=== PATIENT | female | born 1965 | race Caucasian/White ===

== ENCOUNTER 2020-02-01 16:13 | Emergency (ER) | payer BC ==
--- NOTE | 2020-02-01 16:16 | ERPHSYRPT ---
- History of Present Illness Time Seen by Provider: 02/01/20 16:16 Source: patient Exam Limitations: no limitations Physician History: This is a 54-year-old morbidly obese white female who has had a history of frequent urinary tract infections and presents with initial pain in the right scapular area with radiation and now localization in the right flank area. This occurred over approximately 1 to 2-day period of time. She denies any traumatic injury. The pain is significant and localized in the right flank region. Patient has noticed her urine being discolored, that is pink. She has no dysuria. She denies abdominal pain. She has no chest pain she has no shortness of breath. She has no new cough. She chronically has a mild cough. She is had no fevers. Timing/Duration: day(s) (1-2) Activites at Onset: none Quality: sharpness, stabbing Onset Location: right flank Severity of Pain-Max: mild Severity of Pain-Current: mild Sexual intercourse history: non-contributory Modifying Factors: Improves With: nothing Associated Symptoms: No abdominal pain, No fever, No chills, No nausea, No vomiting, No dysuria, No urinary frequency Allergies/Adverse Reactions: No Known Drug Allergies Allergy (Unverified 02/01/20 16:40) Home Medications: Amlodipine Besylate 5 mg PO DAILY 02/01/20 [History] Atorvastatin Calcium 20 mg PO DAILY 02/01/20 [History] Insulin Aspart [Novolog] 13 units SQ AC 02/01/20 [History] Insulin Glargine [Lantus Insulin] 35 units SQ HS 02/01/20 [History] Lisinopril/Hydrochlorothiazide [Lisinopril-Hctz 20-25 mg Tab] 20 mg PO DAILY 02/01/20 [History] gemfibroziL [Gemfibrozil] 600 mg PO DAILY 02/01/20 [History] - Review of Systems Constitutional: No Symptoms Eyes: No Symptoms Ears, Nose, & Throat: No Symptoms Respiratory: Cough (Chronic mild cough) Cardiac: No Symptoms Abdominal/Gastrointestinal: No Symptoms Genitourinary Symptoms: Flank Pain (Right side) Musculoskeletal: No Symptoms Skin: No Symptoms Neurological: No Symptoms Psychological: No Symptoms Endocrine: No Symptoms Hematologic/Lymphatic: No Symptoms Immunological/Allergic: No Symptoms All Other Systems: Reviewed and Negative - Past Medical History Pertinent Past Medical History: Yes Neurological History: No Pertinent History ENT History: No Pertinent History Cardiac History: No Pertinent History Respiratory History: No Pertinent History Endocrine Medical History: Diabetes Type I Musculoskeletal History: Arthritis GI Medical History: No Pertinent History History: No Pertinent History Psycho-Social History: No Pertinent History Female Reproductive Disorders: No Pertinent History - Past Surgical History Past Surgical History: No Neuro Surgical History: No Pertinent History Cardiac: No Pertinent History Respiratory: No Pertinent History Gastrointestinal: No Pertinent History Genitourinary: No Pertinent History Musculoskeletal: No Pertinent History Female Surgical History: No Pertinent History - Nursing Vital Signs Nursing Vital Signs: Initial Vital Signs Temperature 98.9 F 02/01/20 16:24 Pulse Rate 107 H 02/01/20 16:24 Respiratory Rate 22 02/01/20 16:24 Blood Pressure 104/62 02/01/20 16:24 O2 Sat by Pulse Oximetry 96 02/01/20 16:24 Pain Scale Pain Intensity 2 - Physical Exam General Appearance: no apparent distress, alert, anxiety, obese Eye Exam: PERRL/EOMI, eyes nml inspection Ears, Nose, Throat Exam: normal ENT inspection, moist mucous membranes Neck Exam: normal inspection, non-tender, supple, full range of motion Respiratory Exam: normal breath sounds, lungs clear, airway intact, No chest tenderness, No respiratory distress Cardiovascular Exam: regular rate/rhythm, normal heart sounds, normal peripheral pulses Gastrointestinal/Abdomen Exam: soft, normal bowel sounds, No tenderness, No guarding Pelvic Exam: not done Rectal Exam: not done Back Exam: normal inspection, normal range of motion, CVA tenderness (Right), No vertebral tenderness Extremity Exam: normal inspection, normal range of motion, pelvis stable Neurologic Exam: alert, oriented x 3, 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, 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 Skin Exam: normal color, warm, dry Lymphatic Exam: No adenopathy SpO2 Interpretation: normal O2 Delivery: Room Air - Course Nursing assessment & vital signs reviewed: Yes Ordered Tests: Active Orders 24 hr Category Date Time Status IV Insertion STAT Care 02/01/20 16:44 Active ABDOMEN AND PELVIS W/0 CONTRAS [CT] Stat Exams 02/01/20 16:44 Taken AMYLASE Stat Lab 02/01/20 17:00 Completed CBC W DIFF Stat Lab 02/01/20 16:30 Completed CMP Stat Lab 02/01/20 17:00 Completed CULTURE,URINE Stat Lab 02/01/20 16:45 Received LIPASE Stat Lab 02/01/20 17:00 Completed Lactic Acid Stat Lab 02/01/20 16:44 Completed Manual Differential NC Stat Lab 02/01/20 16:30 Completed UA W/RFX UR CULTURE Stat Lab 02/01/20 16:45 Completed Medication Summary Generic Name Dose Route Start Last Admin Trade Name Freq PRN Reason Stop Dose Admin Hydrocodone Bitart/Acetaminophen 10 ml 02/01/20 18:20 Hydrocodone-Acetamin 2.5-108/5 Ml Solution PO 02/01/20 18:21 STAT STA Ceftriaxone Sodium/Dextrose 1 g in 50 mls @ 100 mls/hr 02/01/20 18:04 02/01/20 18:11 Rocephin 1 Gm-D5w 50 Ml Bag IV 02/01/20 18:33 100 mls/hr STAT STA 100 mls/hr Administration Discontinued Medications Generic Name Dose Route Start Last Admin Trade Name Freq PRN Reason Stop Dose Admin Sodium Chloride 1,000 mls @ 999 mls/hr 02/01/20 16:44 02/01/20 17:39 Sodium Chloride 0.9% 1000 Ml IV 02/01/20 17:44 999 mls/hr .Q1H1M STA Administration Sodium Chloride Confirm 02/01/20 17:30 Sodium Chloride 0.9% 1000 Ml Administered 02/01/20 17:31 Dose 1,000 mls @ ud .ROUTE .STK-MED ONE Ceftriaxone Sodium/Dextrose Confirm 02/01/20 18:10 Rocephin 1 Gm-D5w 50 Ml Bag Administered 02/01/20 18:11 Dose 1 g in 50 mls @ ud IV .STK-MED ONE Ketorolac Tromethamine 30 mg 02/01/20 16:44 Toradol 30 Mg Injection IV 02/01/20 16:45 STAT ONE Ketorolac Tromethamine Confirm 02/01/20 17:30 Toradol 30 Mg Injection Administered 02/01/20 17:31 Dose 30 mg .ROUTE .STK-MED ONE Levofloxacin 500 mg 02/01/20 18:07 02/01/20 18:11 Levofloxacin 500 Mg Tablet PO 02/01/20 18:08 500 mg STAT ONE Administration Levofloxacin Confirm 02/01/20 18:10 Levofloxacin 500 Mg Tablet Administered 02/01/20 18:11 Dose 500 mg .ROUTE .STK-MED ONE Ondansetron HCl 4 mg 02/01/20 16:44 Zofran 4 Mg/2 Ml Vial IV 02/01/20 16:45 STAT ONE Ondansetron HCl Confirm 02/01/20 17:29 Zofran 4 Mg/2 Ml Vial Administered 02/01/20 17:30 Dose 4 mg .ROUTE .STK-MED ONE Lab/Rad Data: Laboratory Result Diagrams 02/01/20 16:30 02/01/20 17:00 Laboratory Results 02/01/20 02/01/20 02/01/20 Range/Units 17:00 16:45 16:44 WBC (4.0-10.5) K/mm3 RBC (4.1-5.4) M/mm3 Hgb (12.0-16.0) gm/dl Hct (35-47) % MCV (78-100) fl MCH (26-32) pg MCHC (32-36) g/dl RDW (11.5-14.0) % Plt Count (150-450) K/mm3 MPV (7.5-11.0) fl Segmented Neutrophils (36.0-66.0) % Lymphocytes (Manual) (24-44) % Monocytes (Manual) (0.0-12.0) % Eosinophils (Manual) (0.00-3.0) % Platelet Estimate (NORMAL) RBC Morphology Sodium 133 L (137-145) mmol/L Potassium 3.5 (3.5-5.1) mmol/L Chloride 97 L (98-107) mmol/L Carbon Dioxide 27 (22-30) mmol/L Anion Gap 12.3 (5-15) MEQ/L BUN 14 (7-17) mg/dL Creatinine 1.02 (0.52-1.04) mg/dL Estimated GFR 59.6 ML/MIN Glucose 407 H (74-106) mg/dL Lactic Acid 2.6 H (0.4-2.0) Calcium 9.8 (8.4-10.2) mg/dL Total Bilirubin 1.10 (0.2-1.3) mg/dL AST 38 H (14-36) U/L ALT 24 (0-35) U/L Alkaline Phosphatase 140 H (38-126) U/L Serum Total Protein 7.4 (6.3-8.2) g/dL Albumin 4.1 (3.5-5.0) g/dL Amylase 39 (30-110) U/L Lipase 90 (23-300) U/L Urine Color YELLOW (YELLOW) Urine Appearance CLOUDY (CLEAR) Urine pH 6.0 (5-6) Ur Specific Derwent 1.021 (1.005-1.025) Urine Protein 100 (Negative) Urine Ketones TRACE (NEGATIVE) Urine Blood LARGE (0-5) Rodriguez/ul Urine Nitrite POSITIVE (NEGATIVE) Urine Bilirubin NEGATIVE (NEGATIVE) Urine Urobilinogen NEGATIVE (0-1) mg/dL Ur Leukocyte Esterase LARGE (NEGATIVE) Urine WBC (Auto) >100 (0-5) /HPF Urine RBC (Auto) >101 (0-2) /HPF U Epithel Cells (Auto) RARE (FEW) /HPF Urine Bacteria (Auto) MANY (NEGATIVE) /HPF Amorphous Crystals FEW (NEGATIVE) /HPF Urine Culture Reflexed YES (NO) Urine Glucose >=500 (NEGATIVE) mg/dL 02/01/20 Range/Units 16:30 WBC 20.3 H (4.0-10.5) K/mm3 RBC 4.28 (4.1-5.4) M/mm3 Hgb 13.1 (12.0-16.0) gm/dl Hct 40.8 (35-47) % MCV 95.3 (78-100) fl MCH 30.6 (26-32) pg MCHC 32.1 (32-36) g/dl RDW 14.3 H (11.5-14.0) % Plt Count 297 (150-450) K/mm3 MPV 10.0 (7.5-11.0) fl Segmented Neutrophils 87 H (36.0-66.0) % Lymphocytes (Manual) 7 L (24-44) % Monocytes (Manual) 5 (0.0-12.0) % Eosinophils (Manual) 1 (0.00-3.0) % Platelet Estimate NORMAL (NORMAL) RBC Morphology NORMAL Sodium (137-145) mmol/L Potassium (3.5-5.1) mmol/L Chloride (98-107) mmol/L Carbon Dioxide (22-30) mmol/L Anion Gap (5-15) MEQ/L BUN (7-17) mg/dL Creatinine (0.52-1.04) mg/dL Estimated GFR ML/MIN Glucose (74-106) mg/dL Lactic Acid (0.4-2.0) Calcium (8.4-10.2) mg/dL Total Bilirubin (0.2-1.3) mg/dL AST (14-36) U/L ALT (0-35) U/L Alkaline Phosphatase (38-126) U/L Serum Total Protein (6.3-8.2) g/dL Albumin (3.5-5.0) g/dL Amylase (30-110) U/L Lipase (23-300) U/L Urine Color (YELLOW) Urine Appearance (CLEAR) Urine pH (5-6) Ur Specific Derwent (1.005-1.025) Urine Protein (Negative) Urine Ketones (NEGATIVE) Urine Blood (0-5) Rodriguez/ul Urine Nitrite (NEGATIVE) Urine Bilirubin (NEGATIVE) Urine Urobilinogen (0-1) mg/dL Ur Leukocyte Esterase (NEGATIVE) Urine WBC (Auto) (0-5) /HPF Urine RBC (Auto) (0-2) /HPF U Epithel Cells (Auto) (FEW) /HPF Urine Bacteria (Auto) (NEGATIVE) /HPF Amorphous Crystals (NEGATIVE) /HPF Urine Culture Reflexed (NO) Urine Glucose (NEGATIVE) mg/dL - Progress Progress: improved, re-examined Air Movement: good Progress Note: 02/01/20 18:22 CAT scan of the abdomen and pelvis does not show any acute intra-abdominal a bnormality. However, there is evidence of infiltrate and consolidation of the right base of the lung. Medical decision making: This patient appears to have a right lower lobe pneumonia. In addition, she has a urinary tract infection/kidney infection. We will provide her with Rocephin intravenously and an oral Levaquin antibiotic in the emergency department. Patient has her own regimen for cough control and she will continue this at home per her choice. However, she does want a dose of Lortab elixir here in the emergency department. We will send her home with a prescription for Levaquin antibiotics for 7 days. She is to follow-up with her primary care physician for further management. Blood Culture(s) Obtained: No Antibiotics given: Yes Counseled pt/family regarding: lab results, diagnosis, need for follow-up, rad results - Departure Departure Disposition: Home Clinical Impression: Infiltrate of lower lobe of right lung present on imaging study, Urinary tract infection Condition: Stable Critical Care Time: No Referrals: NISHA PARISI [Primary Care Provider] - Additional Instructions: Drink plenty of fluids. Take your medication as prescribed. Follow-up with your primary care physician for further management. Prescriptions: Levofloxacin [Levaquin 500 MG Tablet] 500 mg PO DAILY #7 tablet
[2020-02-01] MEDS ORDERED: Zofran 4 MG/2 ML VIAL IV ONE (16:44)
[2020-02-01] MEDS ORDERED: Sodium Chloride 0.9% 1000 ML 1,000 ML IV STA (16:44)
[2020-02-01 17:07] LABS: Hematocrit 40.8 % (35-47); Hemoglobin 13.1 gm/dl (12.0-16.0); Mean Cell Volume 95.3 fl (78-100); Mean Corpuscular Hemoglobin 30.6 pg (26-32); Mean Corpuscular Hgb Concent. 32.1 g/dl (32-36); Platelet Count 297 K/mm3 (150-450); Red Blood Count 4.28 M/mm3 (4.1-5.4); Red Cell Distribution Width 14.3 % (11.5-14.0); White Blood Count 20.3 K/mm3 (4.0-10.5)
[2020-02-01 17:16] LABS: ALBUMIN 4.1 g/dL (3.5-5.0); ANION GAP 12.3 MEQ/L (5-15); BILIRUBIN,TOTAL 1.1 mg/dL (0.2-1.3); Calcium 9.8 mg/dL (8.4-10.2); Creatinine 1 1.02 mg/dL (0.52-1.04); EST GLOMERULAR FILTRATION RATE 59.6 ML/MIN; Potassium 3.5 mmol/L (3.5-5.1); Total Protein 7.4 g/dL (6.3-8.2)
[2020-02-01 17:25] LABS: Amourphous Crystal FEW /HPF (NEGATIVE); Appearance CLOUDY (CLEAR); Bacteria MANY /HPF (NEGATIVE); Bilirubin NEGATIVE (NEGATIVE); Blood LARGE Ery/ul (0-5); Epithelial Cells RARE /HPF (FEW); Glucose >=500 mg/dL (NEGATIVE); Ketones TRACE (NEGATIVE); Leukocyte Esterase LARGE (NEGATIVE); Nitrite POSITIVE (NEGATIVE); Protein,Urine Dip 100 (Negative); Specific Gravity 1.021 (1.005-1.025); Urobilinogen NEGATIVE mg/dL (0-1); WBC >100 /HPF (0-5)
[2020-02-01] MEDS ORDERED: Zofran 4 MG/2 ML VIAL ONE (17:29)
[2020-02-01] MEDS ORDERED: Sodium Chloride 0.9% 1000 ML 1,000 ML ONE (17:30)
[2020-02-01] MEDS ORDERED: TORAdol 30 mg Injection ONE (17:30)
[2020-02-01 17:32] VITALS: BP 134/69; O2SAT 95
[2020-02-01 17:34] LABS: RBC >101 /HPF (0-2)
[2020-02-01] MEDS: TORAdol 30 mg Injection IV ONE ×2 (17:39→18:38)
[2020-02-01] MEDS ORDERED: ROCEPHIN 1 Gm-D5w 50 ml Bag** 1 G/50 ML IVPB IV STA (18:04)
[2020-02-01 18:05] LABS: Eosinophil 1 % (0.00-3.0); Lymphocytes 7 % (24-44); Monocyte 5 % (0.0-12.0); Neutrophils 87 % (36.0-66.0); Total Cells Counted 100
[2020-02-01 18:06] LABS: Platelet Estimate NORMAL (NORMAL)
[2020-02-01] MEDS ORDERED: Levofloxacin 500 MG Tablet PO ONE (18:07)
[2020-02-01 18:08] VITALS: PULSE 101
[2020-02-01] MEDS ORDERED: ROCEPHIN 1 Gm-D5w 50 ml Bag** 1 G/50 ML IVPB IV ONE (18:10)
[2020-02-01] MEDS ORDERED: Levofloxacin 500 MG Tablet ONE (18:10)
[2020-02-01] MEDS ORDERED: HYDROCODONE-ACETAMIN 2.5-108/5 ML SOLUTION PO STA (18:20)
[2020-02-01] MEDS ORDERED: HYDROCODONE-ACETAMIN 2.5-108/5 ML SOLUTION ONE (18:42)
--- NOTE | 2020-02-02 08:43 | XRAY ---
Exam: CT of the abdomen and pelvis without IV contrast from 02/01/2020. CTDI: 31.54 mGy Comparison: None. Indication: 54-year-old female with right-sided flank pain, hematuria, history of prior cholecystectomy. Technique: Non-IV contrast axial images were obtained through the abdomen and pelvis. Reconstructed coronal and sagittal images were created and reviewed. Findings: There is a focal consolidation containing minimal air bronchograms at the medial aspect of the right posterior costophrenic angle. This could represent focal right lower lobe pneumonia. Focal atelectasis would be another possibility, but only after exclusion of pneumonia. The remainder of the visualized lung bases appears unremarkable. The heart size is normal. There is prominent inferior extension of the right lobe of the liver which may represent either a Antonette's lobe or mild hepatomegaly. The right lobe measures 20.7 cm in craniocaudal dimension on the coronal images. There is also suggestion of slight diffuse fatty infiltration of the liver. No focal hepatic mass or intrahepatic biliary duct distention is seen, although assessment is limited on a non-IV contrast study only. The spleen is of normal size and reveals no mass. Surgical clips consistent with prior cholecystectomy are seen within the right upper quadrant. The pancreas and adrenal glands appear unremarkable. Within the right kidney, there are multiple nonobstructing stones, the largest measuring up to 2.1 cm in diameter within the upper pole. The left kidney reveals a couple smaller stones adjacent to each other within the lower pole, the largest measuring 4.5 mm in diameter. I see no evidence of hydronephrosis. The ureters are not abnormally distended. No ureterolith is seen. The abdominal aorta appears of normal diameter revealing no abdominal aortic aneurysm. No abnormal retroperitoneal lymphadenopathy is seen. There are a few shotty lymph nodes seen between the distal abdominal aorta and IVC and to the left of the distal abdominal aorta. There is no free intraperitoneal air. There are changes suggestive of prior surgical repair of an umbilical hernia with a small mesh. No recurrent ventral hernia is seen. The patient is obese. The bowel appears nonobstructed. Sigmoid colon diverticulosis without evidence of diverticulitis is seen. Scattered stool is seen throughout the colon. I see no findings of appendicitis within the right lower quadrant. The uterus is anteflexed and appears of normal size. Both ovaries appear grossly unremarkable. No enlarged pelvic lymph nodes or free intraperitoneal fluid is seen. The urinary bladder is mildly distended. There is some artifactual streaking within the lower pelvis due to prior right hip replacement. No definite stone is seen within the urinary bladder. Scattered calcified phleboliths are seen within the pelvis. The skeleton reveals no acute fracture or aggressive bone lesion. At least moderate osteoarthritic changes are seen throughout the lower thoracolumbar spine. There is slight anterolisthesis of L4 over L5 without spondylolysis. Advanced degenerative disc disease is seen at L5-S1. I note also note prominent facet joint osteoarthritis involving the lower 4 lumbar interspace levels. Impression: 1. Focal consolidation containing some minimal air bronchograms at the medial aspect of the right posterior lung sulcus within the right lower lobe. This is worrisome for right lower lobe pneumonia. Some concomitant atelectasis cannot be excluded. No associated pleural effusion is seen. 2. I see multiple bilateral renal stones, more numerous and larger within the right kidney than the left kidney. However, no ureteral distention, ureterolith, hydronephrosis, or other evidence of acute obstructive uropathy is seen. No gross urinary bladder stone is seen. 3. Mild hepatomegaly versus Antonette's lobe of the right lobe of the liver. There is also a suggestion of some minimal diffuse fatty infiltration of the liver. 4. Obesity, sigmoid colon diverticulosis without evidence of diverticulitis, evidence of prior cholecystectomy, and probable prior umbilical hernia surgical repair are seen. 5. No other acute process is seen within the abdomen or pelvis. 6. Status post right hip replacement. This causes some artifactual streaking within the lower pelvis.
== END 2020-02-01 19:16 | disposition home or self-care (01) ==
LOC: ED 16:13
DX: R91.8 Other nonspecific abnormal finding of lung field (principal); N39.0 Urinary tract infection, site not specified; R05 Cough; R10.9 Unspecified abdominal pain; E10.9 Type 1 diabetes mellitus without complications; Z79.899 Other long term (current) drug therapy
CPT/HCPCS: 36000; 36415; 74176; 80053; 81001; 82150; 83605; 83690; 85025; 87077; 87086; 87186; 96360; 96365; 99284; J0696; J1885; J2405; A9270-GY

== ENCOUNTER 2020-10-18 14:02 | Observation (INO) | payer BC, OTHER ==
[2020-10-18] MEDS ORDERED: MORPHINE SULFATE 4 MG INJ IV ONE (14:38)
[2020-10-18] MEDS ORDERED: Sodium Chloride 0.9% 1000 ML 1,000 ML IV STA (14:38)
[2020-10-18] MEDS ORDERED: Zofran 4 MG/2 ML VIAL IV ONE (14:38)
[2020-10-18] MEDS ORDERED: Zofran 4 MG/2 ML VIAL ONE (14:40)
[2020-10-18] MEDS ORDERED: Sodium Chloride 0.9% 1000 ML 1,000 ML ONE (14:41)
[2020-10-18] MEDS ORDERED: MORPHINE SULFATE 4 MG INJ ONE (14:41)
[2020-10-18 14:59] LABS: Absolute Neutrophil Ct (ANC) 10.83 (1.4-6.9); BASOPHIL % 0.5 % (0.0-0.4); Basophil (Absolute #) 0.06 (0-0.4); Eosinophil % 0.2 % (0.00-5.0); Eosinophil (Absolute #) 0.02 (0-0.5); Hematocrit 43.8 % (35-47); Lymphocytes % 9.2 % (24.0-44.0); Mean Cell Volume 92.4 fl (78-100); Mean Corpuscular Hemoglobin 29.5 pg (26-32); Monocyte (Absolute #) 0.93 (0.0-1.3); Monocytes % 7.1 % (0.0-12.0); Platelet Count 317 K/mm3 (150-450); Red Blood Count 4.74 M/mm3 (4.1-5.4); Red Cell Distribution Width 13.7 % (11.5-14.0)
[2020-10-18 15:11] LABS: ALBUMIN 4.5 g/dL (3.5-5.0); ANION GAP 12.5 MEQ/L (5-15); BILIRUBIN,TOTAL 0.8 mg/dL (0.2-1.3); Creatinine 1 1.18 mg/dL (0.52-1.04); EST GLOMERULAR FILTRATION RATE 50.4 ML/MIN; Potassium 3.4 mmol/L (3.5-5.1); Total Protein 7.5 g/dL (6.3-8.2)
--- NOTE | 2020-10-18 15:26 | ERPHSYRPT ---
- History of Present Illness Time Seen by Provider: 10/18/20 14:06 Historian: patient Exam Limitations: no limitations Patient Subjective Stated Complaint: lower abd pain, L flank pain. hx kidney stones Triage Nursing Assessment: pt to ED c/o lower abd pain and L sided flank pain that started around 0600 this morning. pt has had hx of kidney stones since fall of last year. rates 6/10 pain currently but states that it fluxuates. also c/o NV after eating this am. has been seeing CIRCUIT MANAGER at Dr Montero office. Physician History: 54 years old morbidly obese female presented in the ER with chief complaint of left flank pain sudden onset this morning, moderate intensity, sharp in nature, nonradiating, aggravated with movements palpation and partial relief with being still. Denies any associated difficulty urination. Patient report associated nausea and couple of episodes of nonprojectile, nonbilious vomiting with no he matemesis. Denies any fever or chills. Does have history of kidney stones. Timing/Duration: today, constant, sudden, worse Activities at Onset: rest Quality: sharpness Abdominal Pain Onset Location: flank Pain Radiation: no radiation Severity of Pain-Max: moderate Severity of Pain-Current: moderate Modifying Factors: Improves With: rest. Worsens With: movement, palpation Associated Symptoms: nausea, vomiting Previous symptoms: no prior history Allergies/Adverse Reactions: No Known Drug Allergies Allergy (Verified 10/18/20 14:26) Home Medications: Amlodipine Besylate 5 mg PO DAILY 02/01/20 [History] Atorvastatin Calcium 20 mg PO DAILY 02/01/20 [History] Insulin Aspart [Novolog] 20 units SQ AC 02/01/20 [History] Insulin Glargine [Lantus Insulin] 25 units SQ BID 02/01/20 [History] Lisinopril/Hydrochlorothiazide [Lisinopril-Hctz 20-25 mg Tab] 20 mg PO DAILY 02/01/20 [History] gemfibroziL [Gemfibrozil] 600 mg PO BID 02/01/20 [History] Celecoxib 100 mg [celeBREX 100 MG] 100 mg PO BID 10/18/20 [History] Cranberry Fruit Extract [Theracran] 650 mg PO DAILY 10/18/20 [History] Levothyroxine Sodium [Levothyroxine] 50 mcg PO DAILY 10/18/20 [History] Nitrofurantoin Monohyd/M-Cryst [Macrobid 100 mg Capsule] 100 mg PO HS 10/18/20 [History] Hx Tetanus, Diphtheria Vaccination/Date Given: No Hx Influenza Vaccination/Date Given: No Hx Pneumococcal Vaccination/Date Given: No Travel Risk - International Travel Have you traveled outside of the country in past 3 weeks: No - Coronavirus Screening Are you exhibiting any of the following symptoms?: Yes Symptoms: Vomiting/Diarrhea Close contact with a COVID-19 positive Pt in past 14-21 Days: No - Vaccine Status Have you recieved a Covid-19 vaccination: No - Review of Systems Constitutional: No Symptoms Eyes: No Symptoms Ears, Nose, & Throat: No Symptoms Respiratory: No Symptoms Cardiac: No Symptoms Abdominal/Gastrointestinal: Abdominal Pain, Nausea, Vomiting Genitourinary Symptoms: No Symptoms Musculoskeletal: No Symptoms Skin: No Symptoms Neurological: No Symptoms Psychological: No Symptoms Endocrine: No Symptoms Hematologic/Lymphatic: No Symptoms Immunological/Allergic: No Symptoms - Past Medical History Pertinent Past Medical History: Yes Neurological History: No Pertinent History ENT History: No Pertinent History Cardiac History: No Pertinent History Respiratory History: No Pertinent History Endocrine Medical History: Diabetes Type I Musculoskeletal History: Arthritis GI Medical History: No Pertinent History History: No Pertinent History Psycho-Social History: No Pertinent History Female Reproductive Disorders: No Pertinent History - Past Surgical History Past Surgical History: Yes Neuro Surgical History: No Pertinent History Cardiac: No Pertinent History Respiratory: No Pertinent History Gastrointestinal: No Pertinent History Genitourinary: No Pertinent History Musculoskeletal: Joint Replacement Female Surgical History: No Pertinent History Other Surgical History: R hip replaced 2012 - Social History Smoking Status: Never smoker Exposure to second hand smoke: No Drug Use: none Patient Lives Alone: No - Female History Hx Now: No - Nursing Vital Signs Nursing Vital Signs: Initial Vital Signs Temperature 99.1 F 10/18/20 14:14 Pulse Rate 75 10/18/20 14:14 Respiratory Rate 20 10/18/20 14:14 Blood Pressure 123/67 10/18/20 14:14 O2 Sat by Pulse Oximetry 95 10/18/20 14:14 Pain Scale Pain Intensity 6 - Physical Exam General Appearance: no apparent distress, alert Eye Exam: eyes nml inspection Ears, Nose, Throat Exam: normal ENT inspection, pharynx normal Neck Exam: normal inspection, non-tender, supple, full range of motion Respiratory Exam: normal breath sounds, lungs clear Cardiovascular Exam: regular rate/rhythm, normal heart sounds Gastrointestinal/Abdomen Exam: soft, normal bowel sounds, tenderness (Left flank), guarding Back Exam: normal inspection, CVA tenderness Extremity Exam: normal inspection, normal range of motion Neurologic Exam: alert, oriented x 3, cooperative, medical oncologist II-XII nml as tested Skin Exam: normal color SpO2 Interpretation: normal SpO2: 96 O2 Delivery: Room Air Ordered Tests: Active Orders 24 hr Category Date Time Status IV Insertion STAT Care 10/18/20 14:38 Active NPO (ED) STAT Care 10/18/20 14:38 Active ABDOMEN AND PELVIS W/0 CONTRAS [CT] Stat Exams 10/18/20 14:38 Taken AMYLASE Stat Lab 10/18/20 14:27 Completed CBC W DIFF Stat Lab 10/18/20 14:27 Completed CMP Stat Lab 10/18/20 14:27 Completed CULTURE,URINE Stat Lab 10/18/20 14:40 Received LIPASE Stat Lab 10/18/20 14:27 Completed Lactic Acid Stat Lab 10/18/20 14:38 Completed UA W/RFX UR CULTURE Stat Lab 10/18/20 14:40 Completed Transfer Order Routine Transfer 10/18/20 Ordered Medication Summary Generic Name Dose Route Start Last Admin Trade Name Freq PRN Reason Stop Dose Admin Ceftriaxone Sodium/Dextrose 1 g in 50 mls @ 100 mls/hr 10/18/20 17:05 17:16 Rocephin 1 Gm-D5w 50 Ml Bag IV 10/18/20 17:34 100 ml/hr STAT STA 100 mls/hr Administration Tamsulosin HCl 0.8 mg 10/19/20 16:14 10/18/20 16:16 Flomax 0.4 Mg PO 10/19/20 16:15 0.8 mg STAT ONE Administration Discontinued Medications Generic Name Dose Route Start Last Admin Trade Name Freq PRN Reason Stop Dose Admin Sodium Chloride 1,000 mls @ 999 mls/hr 10/18/20 14:38 10/18/20 15:44 Sodium Chloride 0.9% 1000 Ml IV 10/18/20 15:38 Infused .Q1H1M STA Infusion Sodium Chloride Confirm 10/18/20 14:41 Sodium Chloride 0.9% 1000 Ml Administered 10/18/20 14:42 Dose 1,000 mls @ ud .ROUTE .STK-MED ONE Ceftriaxone Sodium/Dextrose Confirm 10/18/20 17:13 Rocephin 1 Gm-D5w 50 Ml Bag Administered 10/18/20 17:14 Dose 1 g in 50 mls @ ud IV .STK-MED ONE Ketorolac Tromethamine 30 mg 10/18/20 15:39 10/18/20 15:44 Toradol 30 Mg Injection IV 10/18/20 15:40 30 mg STAT ONE Administration Ketorolac Tromethamine Confirm 10/18/20 15:42 Toradol 30 Mg Injection Administered 10/18/20 15:43 Dose 30 mg .ROUTE .STK-MED ONE Morphine Sulfate 4 mg 10/18/20 14:38 10/18/20 14:43 Morphine Sulfate 4 Mg Inj IV 10/18/20 14:39 4 mg STAT ONE Administration Morphine Sulfate Confirm 10/18/20 14:41 Morphine Sulfate 4 Mg Inj Administered 10/18/20 14:42 Dose 4 mg .ROUTE .STK-MED ONE Ondansetron HCl 4 mg 10/18/20 14:38 10/18/20 14:43 Zofran 4 Mg/2 Ml Vial IV 10/18/20 14:39 4 mg STAT ONE Administration Ondansetron HCl Confirm 10/18/20 14:40 Zofran 4 Mg/2 Ml Vial Administered 10/18/20 14:41 Dose 4 mg .ROUTE .STK-MED ONE Tamsulosin HCl Confirm 10/18/20 16:15 Flomax 0.4 Mg Administered 10/18/20 16:16 Dose 0.8 mg .ROUTE .STK-MED ONE Lab/Rad Data: Laboratory Result Diagrams 10/18/20 14:27 10/18/20 14:27 Laboratory Results 10/18/20 10/18/20 10/18/20 Range/Units 14:40 14:38 14:27 WBC (4.0-10.5) K/mm3 RBC (4.1-5.4) M/mm3 Hgb (12.0-16.0) gm/dl Hct (35-47) % MCV (78-100) fl MCH (26-32) pg MCHC (32-36) g/dl RDW (11.5-14.0) % Plt Count (150-450) K/mm3 MPV (7.5-11.0) fl Gran % (36.0-66.0) % Eos # (Auto) (0-0.5) Absolute Lymphs (auto) (1.0-4.6) Absolute Monos (auto) (0.0-1.3) Lymphocytes % (24.0-44.0) % Monocytes % (0.0-12.0) % Eosinophils % (0.00-5.0) % Basophils % (0.0-0.4) % Absolute Granulocytes (1.4-6.9) Basophils # (0-0.4) Sodium 134 L (137-145) mmol/L Potassium 3.4 L (3.5-5.1) mmol/L Chloride 99 (98-107) mmol/L Carbon Dioxide 26 (22-30) mmol/L Anion Gap 12.5 (5-15) MEQ/L BUN 16 (7-17) mg/dL Creatinine 1.18 H (0.52-1.04) mg/dL Estimated GFR 50.4 ML/MIN Glucose 234 H (74-106) mg/dL Lactic Acid 1.5 (0.4-2.0) Calcium 10.0 (8.4-10.2) mg/dL Total Bilirubin 0.80 (0.2-1.3) mg/dL AST 85 H (14-36) U/L ALT 42 H (0-35) U/L Alkaline Phosphatase 152 H (38-126) U/L Serum Total Protein 7.5 (6.3-8.2) g/dL Albumin 4.5 (3.5-5.0) g/dL Amylase 45 (30-110) U/L Lipase 101 (23-300) U/L Urine Color YELLOW (YELLOW) Urine Appearance SLIGHTLY CLOUDY (CLEAR) Urine pH 6.0 (5-6) Ur Specific [place] 1.011 (1.005-1.025) Urine Protein 30 (Negative) Urine Ketones TRACE (NEGATIVE) Urine Blood LARGE (0-5) Rodriguez/ul Urine Nitrite NEGATIVE (NEGATIVE) Urine Bilirubin NEGATIVE (NEGATIVE) Urine Urobilinogen NEGATIVE (0-1) mg/dL Ur Leukocyte Esterase LARGE (NEGATIVE) Urine WBC (Auto) 51-100 (0-5) /HPF Urine RBC (Auto) >101 (0-2) /HPF U Epithel Cells (Auto) RARE (FEW) /HPF Urine Bacteria (Auto) FEW (NEGATIVE) /HPF Urine Culture Reflexed YES (NO) Urine Glucose 150 (NEGATIVE) mg/dL 10/18/20 Range/Units 14:27 WBC 13.0 H (4.0-10.5) K/mm3 RBC 4.74 (4.1-5.4) M/mm3 Hgb 14.0 (12.0-16.0) gm/dl Hct 43.8 (35-47) % MCV 92.4 (78-100) fl MCH 29.5 (26-32) pg MCHC 32.0 (32-36) g/dl RDW 13.7 (11.5-14.0) % Plt Count 317 (150-450) K/mm3 MPV 10.0 (7.5-11.0) fl Gran % 83.0 H (36.0-66.0) % Eos # (Auto) 0.02 (0-0.5) Absolute Lymphs (auto) 1.20 (1.0-4.6) Absolute Monos (auto) 0.93 (0.0-1.3) Lymphocytes % 9.2 L (24.0-44.0) % Monocytes % 7.1 (0.0-12.0) % Eosinophils % 0.2 (0.00-5.0) % Basophils % 0.5 (0.0-0.4) % Absolute Granulocytes 10.83 H (1.4-6.9) Basophils # 0.06 (0-0.4) Sodium (137-145) mmol/L Potassium (3.5-5.1) mmol/L Chloride (98-107) mmol/L Carbon Dioxide (22-30) mmol/L Anion Gap (5-15) MEQ/L BUN (7-17) mg/dL Creatinine (0.52-1.04) mg/dL Estimated GFR ML/MIN Glucose (74-106) mg/dL Lactic Acid (0.4-2.0) Calcium (8.4-10.2) mg/dL Total Bilirubin (0.2-1.3) mg/dL AST (14-36) U/L ALT (0-35) U/L Alkaline Phosphatase (38-126) U/L Serum Total Protein (6.3-8.2) g/dL Albumin (3.5-5.0) g/dL Amylase (30-110) U/L Lipase (23-300) U/L Urine Color (YELLOW) Urine Appearance (CLEAR) Urine pH (5-6) Ur Specific [place] (1.005-1.025) Urine Protein (Negative) Urine Ketones (NEGATIVE) Urine Blood (0-5) Rodriguez/ul Urine Nitrite (NEGATIVE) Urine Bilirubin (NEGATIVE) Urine Urobilinogen (0-1) mg/dL Ur Leukocyte Esterase (NEGATIVE) Urine WBC (Auto) (0-5) /HPF Urine RBC (Auto) (0-2) /HPF U Epithel Cells (Auto) (FEW) /HPF Urine Bacteria (Auto) (NEGATIVE) /HPF Urine Culture Reflexed (NO) Urine Glucose (NEGATIVE) mg/dL - Progress Progress: improved, pain not gone completely, re-examined Progress Note: 10/18/20 17:21 54 years old is evaluated for left flank pain. She is given fluid bolus and symptomatic treatment for pain with morphine and Toradol, on reevaluation her pain is much better. She has a white count of 13, mildly elevated creatinine of 1.18 with a baseline of 1.0. Urinalysis consistent with UTI. Given dose of antibiotic. CT showed 4 x 3 mm UVJ stone with some hydroureteronephrosis and some perinephric fat stranding. I hope patient would be able to pass stone on its own, does need multiple pain medications, discussed with Dr. Cancino, reviewed history work-up and current management, agreed with observation admission with IV fluid, pain medication and antibiotic along with Flomax. Discussed with : Corby Will see patient in: hospital (observation) Counseled pt/family regarding: lab results, diagnosis, need for follow-up, rad results - Departure Departure Disposition: Observation Clinical Impression: Ureterolithiasis Urinary tract infection Qualifiers: Urinary tract infection type: site unspecified Hematuria presence: with hematuria Qualified Code(s): N39.0 - Urinary tract infection, site not specified; R31.9 - Hematuria, unspecified Condition: Stable Critical Care Time: No Referrals: OCTAVIA LACEY MD [Primary Care Provider] -
[2020-10-18 15:34] LABS: Appearance SLIGHTLY CLOUDY (CLEAR); Bacteria FEW /HPF (NEGATIVE); Bilirubin NEGATIVE (NEGATIVE); Blood LARGE Ery/ul (0-5); Epithelial Cells RARE /HPF (FEW); Glucose 150 mg/dL (NEGATIVE); Ketones TRACE (NEGATIVE); Leukocyte Esterase LARGE (NEGATIVE); Nitrite NEGATIVE (NEGATIVE); Protein,Urine Dip 30 (Negative); Specific Gravity 1.011 (1.005-1.025); Urobilinogen NEGATIVE mg/dL (0-1); WBC 51-100 /HPF (0-5)
[2020-10-18] MEDS ORDERED: TORAdol 30 mg Injection IV ONE (15:39)
[2020-10-18] MEDS ORDERED: TORAdol 30 mg Injection ONE (15:42)
[2020-10-18 15:48] LABS: RBC >101 /HPF (0-2)
[2020-10-18] MEDS ORDERED: Flomax 0.4 MG ONE (16:15)
[2020-10-18] MEDS ORDERED: ROCEPHIN 1 Gm-D5w 50 ml Bag** 1 G/50 ML IVPB IV STA (17:05)
[2020-10-18] MEDS ORDERED: ROCEPHIN 1 Gm-D5w 50 ml Bag** 1 G/50 ML IVPB IV ONE (17:13)
[2020-10-18 18:23] LABS: INFLUENZA A NEGATIVE (NEGATIVE); INFLUENZA B NEGATIVE (NEGATIVE); RESPIRATORY SYNCTIAL VIRUS NEGATIVE (Negative)
--- NOTE | 2020-10-18 19:54 | XRAY ---
Indication: Left flank pain. Multiple contiguous axial images obtained through abdomen and pelvis without contrast using renal stone protocol. Comparison: February 01, 2020. Examination again limited due to patient body habitus and beam artifact from right hip arthroplasty. Lung bases demonstrates minimal dependent atelectasis. No infiltrate or effusion. Heart not enlarged. New 4 mm left UPJ calculus with mild hydronephrosis consistent with partial obstructive uropathy. No perinephric fluid. Again multiple bilateral renal micro-calculi. Noncontrasted stomach and bowel loops remain nonobstructed. Stable colonic diverticulosis, fatty liver, and cholecystectomy. No free fluid/air. Remaining liver, pancreas, spleen, adrenal glands, urinary bladder, uterus, and aorta unremarkable for noncontrast exam. Osseous structures intact again with osteopenia and mild/moderate degenerative changes throughout the thoracolumbar spine. Impression: 1. New 4 mm left UPJ calculus producing partial obstruction. Grossly stable bilateral renal micro-calculi. 2. Again incidental colonic diverticulosis, fatty liver, and chronic bony findings. Comment: Preliminary interpretation was made by [facility]. No critical discrepancy.
[2020-10-18] MEDS ORDERED: MORPHINE SULFATE 4 MG INJ IV PRN (19:57)
[2020-10-18] MEDS: Sodium Chloride 0.9% W/ 20 mEq KCl/LITER 1,000 ML IV SCH (21:31)
[2020-10-18] MEDS: celeBREX 100 MG PO SCH (22:28)
[2020-10-18] MEDS: HUMALOG SQ PRN (22:31)
[2020-10-18] MEDS: Lantus Insulin SQ SCH (22:31)
[2020-10-18] MEDS: LOPID 600 MG PO SCH (22:35)
[2020-10-19] MEDS ORDERED: MOTRIN 400 MG PO PRN (04:54)
[2020-10-19] MEDS ORDERED: MOTRIN 400 MG ONE (04:59)
[2020-10-19] MEDS: Sodium Chloride 0.9% W/ 20 mEq KCl/LITER 1,000 ML IV SCH ×3 (05:07→21:50)
[2020-10-19 05:15] LABS: Hematocrit 39.5 % (35-47); Hemoglobin 12.4 gm/dl (12.0-16.0); Mean Cell Volume 94.5 fl (78-100); Mean Corpuscular Hemoglobin 29.7 pg (26-32); Mean Corpuscular Hgb Concent. 31.4 g/dl (32-36); Mean Platelet Volume 9.7 fl (7.5-11.0); Platelet Count 270 K/mm3 (150-450); Red Blood Count 4.18 M/mm3 (4.1-5.4); Red Cell Distribution Width 13.9 % (11.5-14.0); White Blood Count 15.7 K/mm3 (4.0-10.5)
[2020-10-19 05:56] LABS: BAND 5 % (0.0-2.0); Lymphocytes 10 % (24-44); Monocyte 3 % (0.0-12.0); Neutrophils 82 % (36.0-66.0); Total Cells Counted 100
[2020-10-19 05:57] LABS: Platelet Estimate NORMAL (NORMAL)
[2020-10-19 06:11] LABS: ALBUMIN 3.9 g/dL (3.5-5.0); ANION GAP 12.8 MEQ/L (5-15); BILIRUBIN,TOTAL 0.9 mg/dL (0.2-1.3); Calcium 9.2 mg/dL (8.4-10.2); Creatinine 1 1.61 mg/dL (0.52-1.04); EST GLOMERULAR FILTRATION RATE 35.2 ML/MIN; Potassium 3.8 mmol/L (3.5-5.1); Total Protein 6.7 g/dL (6.3-8.2)
[2020-10-19] MEDS: TYLENOL 325 MG PO PRN ×2 (08:33→13:39)
[2020-10-19] MEDS: HUMALOG SQ PRN ×3 (08:38→22:18)
[2020-10-19] MEDS: ROCEPHIN 1 Gm-D5w 50 ml Bag** 1 G/50 ML IVPB IV SCH (09:51)
[2020-10-19] MEDS: Lantus Insulin SQ SCH ×2 (09:53→22:16)
[2020-10-19] MEDS: Flomax 0.4 MG PO SCH (09:54)
[2020-10-19] MEDS: celeBREX 100 MG PO SCH ×2 (09:54→22:16)
[2020-10-19] MEDS: LOPID 600 MG PO SCH ×2 (09:55→22:16)
[2020-10-19] MEDS: PROTONIX 40 MG IV IV SCH (09:56)
--- NOTE | 2020-10-19 11:25 | PCM.HP ---
History of Present Illness - Chief Complaint Chief Complaint: abdominal pain for 2-3 days History of Present Illness: is a 54 year old female.with chief complaint of left flank pain sudden onset this morning, moderate intensity, sharp in nature, nonradiating, aggravated with movements palpation and partial relief with being still. Denies any associated difficulty urination. Patient report associated nausea and couple of episodes of nonprojectile, nonbilious vomiting with no hematemesis. Denies any fever or chills. Does have history of kidney stones. Timing/Duration: today, constant, sudden, worse - Review of Systems Constitutional: No Fever, No Chills Eyes: No Symptoms Ears, Nose, & Throat: No Symptoms Respiratory: No Cough, No Short Of Breath Cardiac: No Chest Pain, No Edema, No Syncope Abdominal/Gastrointestinal: Abdominal Pain, No Nausea, No Vomiting, No Diarrhea Genitourinary Symptoms: Dysuria, Frequency, Hesitancy, Urgency Musculoskeletal: No Back Pain, No Neck Pain Skin: No Rash Neurological: No Dizziness, No Focal Weakness, No Sensory Changes Psychological: No Symptoms Endocrine: No Symptoms Hematologic/Lymphatic: No Symptoms Immunological/Allergic: No Symptoms Medications & Allergies Home Medications: Home Medication List Amlodipine Besylate 5 mg PO DAILY 02/01/20 [History Confirmed 10/18/20] Atorvastatin Calcium 20 mg PO DAILY 02/01/20 [History Confirmed 10/18/20] Insulin Aspart [Novolog] 20 units SQ AC 02/01/20 [History Confirmed 10/18/20] Insulin Glargine [Lantus Insulin] 25 units SQ BID 02/01/20 [History Confirmed 10/18/20] Lisinopril/Hydrochlorothiazide [Lisinopril-Hctz 20-25 mg Tab] 20 mg PO DAILY 02/01/20 [History Confirmed 10/18/20] gemfibroziL [Gemfibrozil] 600 mg PO BID 02/01/20 [History Confirmed 10/18/20] Apixaban [Eliquis 2.5 mg Tablet] 5 mg PO DAILY 10/18/20 [History Confirmed 10/18/20] Celecoxib 100 mg [celeBREX 100 MG] 100 mg PO BID 10/18/20 [History Confirmed 10/18/20] Cetirizine HCl [Zyrtec] 5 mg PO DAILY 10/18/20 [History Confirmed 10/19/20] Cranberry Fruit Extract [Theracran] 650 mg PO DAILY 10/18/20 [History Confirmed 10/18/20] Levothyroxine Sodium [Levothyroxine] 50 mcg PO DAILY 10/18/20 [History Confirmed 10/18/20] Montelukast Sodium 10 mg [Singulair 10 MG] 10 mg PO DAILY 10/18/20 [History Confirmed 10/19/20] Nitrofurantoin Monohyd/M-Cryst [Macrobid 100 mg Capsule] 100 mg PO HS 10/18/20 [History Confirmed 10/18/20] Allergies/Adverse Reactions: Allergies Allergy/AdvReac Type Severity Reaction Status Date / Time No Known Drug Allergies Allergy Verified 10/18/20 14:26 - Past Medical History Past Medical History: Yes Neurological History: No Pertinent History ENT History: No Pertinent History Cardiac History: No Pertinent History Respiratory History: No Pertinent History Endocrine Medical History: Diabetes Type I Musculoskelatal History: Arthritis GI Medical History: No Pertinent History, Gallbladder Disease History: No Pertinent History Pyscho-Social History: No Pertinent History Reproductive Disorders: No Pertinent History - Female History Are you now?: No - Past Surgical History Past Surgical History: Yes Neuro Surgical History: No Pertinent History Cardiac History: No Pertinent History Respiratory Surgery: No Pertinent History GI Surgical History: Cholecystectomy, Hernia Repair Genitourinary Surgical Hx: No Pertinent History Musculskeletal Surgical Hx: Joint Replacement Female Surgical History: Dilation & Curettage, Lumpectomy Other Surgical History: R hip replaced 2012 - Social History Smoking Status: Never smoker Exposure to second hand smoke: No Alcohol: None Drug Use: none - Physical Exam Vital Signs: Vital Signs - 24 hr Temp Pulse Resp BP Pulse Ox 10/19/20 07:31 99.2 F 95 H 20 115/53 93 L 10/19/20 04:00 98.4 F 91 H 18 99/54 93 L 10/19/20 00:00 99.2 F 93 H 20 99/54 94 L 10/18/20 21:03 97.9 F 95 H 21 133/61 98 10/18/20 20:30 97.9 F 95 H 21 133/61 98 10/18/20 19:00 84 18 127/74 94 L 10/18/20 18:00 76 16 111/72 94 L 10/18/20 17:23 96 10/18/20 17:00 72 18 114/72 95 10/18/20 16:00 76 18 130/68 96 10/18/20 15:05 84 18 123/67 96 10/18/20 14:14 99.1 F 75 20 123/67 95 General Appearance: no apparent distress, alert Neurologic Exam: alert, oriented x 3, cooperative, normal mood/affect, nml cerebellar function, nml station & gait, sensation nml, No motor deficits Eye Exam: PERRL/EOMI, eyes nml inspection Ears, Nose, Throat Exam: normal ENT inspection, TMs normal, pharynx normal, moist mucous membranes Neck Exam: normal inspection, non-tender, supple, full range of motion Respiratory Exam: normal breath sounds, lungs clear, No respiratory distress Cardiovascular Exam: regular rate/rhythm, normal heart sounds, normal peripheral pulses Gastrointestinal/Abdomen Exam: soft, normal bowel sounds, No tenderness, No mass Back Exam: normal inspection, normal range of motion, No CVA tenderness, No vertebral tenderness Extremity Exam: normal inspection, normal range of motion, pelvis stable Skin Exam: normal color, warm, dry, No rash Lymphatic Exam: No adenopathy Results - Labs Lab/Micro Results: Lab Results-Last 24 Hours 10/18/20 10/18/20 10/18/20 Range/Units 14:27 14:27 14:38 WBC 13.0 H (4.0-10.5) K/mm3 RBC 4.74 (4.1-5.4) M/mm3 Hgb 14.0 (12.0-16.0) gm/dl Hct 43.8 (35-47) % MCV 92.4 (78-100) fl MCH 29.5 (26-32) pg MCHC 32.0 (32-36) g/dl RDW 13.7 (11.5-14.0) % Plt Count 317 (150-450) K/mm3 MPV 10.0 (7.5-11.0) fl Gran % 83.0 H (36.0-66.0) % Eos # (Auto) 0.02 (0-0.5) Absolute Lymphs (auto) 1.20 (1.0-4.6) Absolute Monos (auto) 0.93 (0.0-1.3) Lymphocytes % 9.2 L (24.0-44.0) % Monocytes % 7.1 (0.0-12.0) % Eosinophils % 0.2 (0.00-5.0) % Basophils % 0.5 (0.0-0.4) % Absolute Granulocytes 10.83 H (1.4-6.9) Segmented Neutrophils (36.0-66.0) % Band Neutrophils (0.0-2.0) % Lymphocytes (Manual) (24-44) % Monocytes (Manual) (0.0-12.0) % Basophils # 0.06 (0-0.4) Platelet Estimate (NORMAL) RBC Morphology Sodium 134 L (137-145) mmol/L Potassium 3.4 L (3.5-5.1) mmol/L Chloride 99 (98-107) mmol/L Carbon Dioxide 26 (22-30) mmol/L Anion Gap 12.5 (5-15) MEQ/L BUN 16 (7-17) mg/dL Creatinine 1.18 H (0.52-1.04) mg/dL Estimated GFR 50.4 ML/MIN Glucose 234 H (74-106) mg/dL POC Glucometer (74 to 106) mg/dL Lactic Acid 1.5 (0.4-2.0) Calcium 10.0 (8.4-10.2) mg/dL Total Bilirubin 0.80 (0.2-1.3) mg/dL AST 85 H (14-36) U/L ALT 42 H (0-35) U/L Alkaline Phosphatase 152 H (38-126) U/L Serum Total Protein 7.5 (6.3-8.2) g/dL Albumin 4.5 (3.5-5.0) g/dL Amylase 45 (30-110) U/L Lipase 101 (23-300) U/L Urine Color (YELLOW) Urine Appearance (CLEAR) Urine pH (5-6) Ur Specific Lucien (1.005-1.025) Urine Protein (Negative) Urine Ketones (NEGATIVE) Urine Blood (0-5) Rodriguez/ul Urine Nitrite (NEGATIVE) Urine Bilirubin (NEGATIVE) Urine Urobilinogen (0-1) mg/dL Ur Leukocyte Esterase (NEGATIVE) Urine WBC (Auto) (0-5) /HPF Urine RBC (Auto) (0-2) /HPF U Epithel Cells (Auto) (FEW) /HPF Urine Bacteria (Auto) (NEGATIVE) /HPF Urine Culture Reflexed (NO) Urine Glucose (NEGATIVE) mg/dL Influenza Type A Ag (NEGATIVE) Influenza Type B Ag (NEGATIVE) RSV (PCR) (Negative) SARS-CoV-2 (PCR) (NEGATIVE) 10/18/20 10/18/20 10/18/20 Range/Units 14:40 17:44 20:50 WBC (4.0-10.5) K/mm3 RBC (4.1-5.4) M/mm3 Hgb (12.0-16.0) gm/dl Hct (35-47) % MCV (78-100) fl MCH (26-32) pg MCHC (32-36) g/dl RDW (11.5-14.0) % Plt Count (150-450) K/mm3 MPV (7.5-11.0) fl Gran % (36.0-66.0) % Eos # (Auto) (0-0.5) Absolute Lymphs (auto) (1.0-4.6) Absolute Monos (auto) (0.0-1.3) Lymphocytes % (24.0-44.0) % Monocytes % (0.0-12.0) % Eosinophils % (0.00-5.0) % Basophils % (0.0-0.4) % Absolute Granulocytes (1.4-6.9) Segmented Neutrophils (36.0-66.0) % Band Neutrophils (0.0-2.0) % Lymphocytes (Manual) (24-44) % Monocytes (Manual) (0.0-12.0) % Basophils # (0-0.4) Platelet Estimate (NORMAL) RBC Morphology Sodium (137-145) mmol/L Potassium (3.5-5.1) mmol/L Chloride (98-107) mmol/L Carbon Dioxide (22-30) mmol/L Anion Gap (5-15) MEQ/L BUN (7-17) mg/dL Creatinine (0.52-1.04) mg/dL Estimated GFR ML/MIN Glucose (74-106) mg/dL POC Glucometer 218 H (74 to 106) mg/dL Lactic Acid (0.4-2.0) Calcium (8.4-10.2) mg/dL Total Bilirubin (0.2-1.3) mg/dL AST (14-36) U/L ALT (0-35) U/L Alkaline Phosphatase (38-126) U/L Serum Total Protein (6.3-8.2) g/dL Albumin (3.5-5.0) g/dL Amylase (30-110) U/L Lipase (23-300) U/L Urine Color YELLOW (YELLOW) Urine Appearance SLIGHTLY CLOUDY (CLEAR) Urine pH 6.0 (5-6) Ur Specific Lucien 1.011 (1.005-1.025) Urine Protein 30 (Negative) Urine Ketones TRACE (NEGATIVE) Urine Blood LARGE (0-5) Rodriguez/ul Urine Nitrite NEGATIVE (NEGATIVE) Urine Bilirubin NEGATIVE (NEGATIVE) Urine Urobilinogen NEGATIVE (0-1) mg/dL Ur Leukocyte Esterase LARGE (NEGATIVE) Urine WBC (Auto) 51-100 (0-5) /HPF Urine RBC (Auto) >101 (0-2) /HPF U Epithel Cells (Auto) RARE (FEW) /HPF Urine Bacteria (Auto) FEW (NEGATIVE) /HPF Urine Culture Reflexed YES (NO) Urine Glucose 150 (NEGATIVE) mg/dL Influenza Type A Ag NEGATIVE (NEGATIVE) Influenza Type B Ag NEGATIVE (NEGATIVE) RSV (PCR) NEGATIVE (Negative) SARS-CoV-2 (PCR) NEGATIVE (NEGATIVE) 10/19/20 10/19/20 10/19/20 Range/Units 04:42 04:42 07:16 WBC 15.7 H (4.0-10.5) K/mm3 RBC 4.18 (4.1-5.4) M/mm3 Hgb 12.4 (12.0-16.0) gm/dl Hct 39.5 (35-47) % MCV 94.5 (78-100) fl MCH 29.7 (26-32) pg MCHC 31.4 L (32-36) g/dl RDW 13.9 (11.5-14.0) % Plt Count 270 (150-450) K/mm3 MPV 9.7 (7.5-11.0) fl Gran % (36.0-66.0) % Eos # (Auto) (0-0.5) Absolute Lymphs (auto) (1.0-4.6) Absolute Monos (auto) (0.0-1.3) Lymphocytes % (24.0-44.0) % Monocytes % (0.0-12.0) % Eosinophils % (0.00-5.0) % Basophils % (0.0-0.4) % Absolute Granulocytes (1.4-6.9) Segmented Neutrophils 82 H (36.0-66.0) % Band Neutrophils 5 H (0.0-2.0) % Lymphocytes (Manual) 10 L (24-44) % Monocytes (Manual) 3 (0.0-12.0) % Basophils # (0-0.4) Platelet Estimate NORMAL (NORMAL) RBC Morphology NORMAL Sodium 134 L (137-145) mmol/L Potassium 3.8 (3.5-5.1) mmol/L Chloride 100 (98-107) mmol/L Carbon Dioxide 25 (22-30) mmol/L Anion Gap 12.8 (5-15) MEQ/L BUN 20 H (7-17) mg/dL Creatinine 1.61 H (0.52-1.04) mg/dL Estimated GFR 35.2 ML/MIN Glucose 203 H (74-106) mg/dL POC Glucometer 190 H (74 to 106) mg/dL Lactic Acid (0.4-2.0) Calcium 9.2 (8.4-10.2) mg/dL Total Bilirubin 0.90 (0.2-1.3) mg/dL AST 54 H (14-36) U/L ALT 32 (0-35) U/L Alkaline Phosphatase 108 (38-126) U/L Serum Total Protein 6.7 (6.3-8.2) g/dL Albumin 3.9 (3.5-5.0) g/dL Amylase (30-110) U/L Lipase (23-300) U/L Urine Color (YELLOW) Urine Appearance (CLEAR) Urine pH (5-6) Ur Specific Lucien (1.005-1.025) Urine Protein (Negative) Urine Ketones (NEGATIVE) Urine Blood (0-5) Rodriguez/ul Urine Nitrite (NEGATIVE) Urine Bilirubin (NEGATIVE) Urine Urobilinogen (0-1) mg/dL Ur Leukocyte Esterase (NEGATIVE) Urine WBC (Auto) (0-5) /HPF Urine RBC (Auto) (0-2) /HPF U Epithel Cells (Auto) (FEW) /HPF Urine Bacteria (Auto) (NEGATIVE) /HPF Urine Culture Reflexed (NO) Urine Glucose (NEGATIVE) mg/dL Influenza Type A Ag (NEGATIVE) Influenza Type B Ag (NEGATIVE) RSV (PCR) (Negative) SARS-CoV-2 (PCR) (NEGATIVE) 10/19/20 Range/Units 11:11 WBC (4.0-10.5) K/mm3 RBC (4.1-5.4) M/mm3 Hgb (12.0-16.0) gm/dl Hct (35-47) % MCV (78-100) fl MCH (26-32) pg MCHC (32-36) g/dl RDW (11.5-14.0) % Plt Count (150-450) K/mm3 MPV (7.5-11.0) fl Gran % (36.0-66.0) % Eos # (Auto) (0-0.5) Absolute Lymphs (auto) (1.0-4.6) Absolute Monos (auto) (0.0-1.3) Lymphocytes % (24.0-44.0) % Monocytes % (0.0-12.0) % Eosinophils % (0.00-5.0) % Basophils % (0.0-0.4) % Absolute Granulocytes (1.4-6.9) Segmented Neutrophils (36.0-66.0) % Band Neutrophils (0.0-2.0) % Lymphocytes (Manual) (24-44) % Monocytes (Manual) (0.0-12.0) % Basophils # (0-0.4) Platelet Estimate (NORMAL) RBC Morphology Sodium (137-145) mmol/L Potassium (3.5-5.1) mmol/L Chloride (98-107) mmol/L Carbon Dioxide (22-30) mmol/L Anion Gap (5-15) MEQ/L BUN (7-17) mg/dL Creatinine (0.52-1.04) mg/dL Estimated GFR ML/MIN Glucose (74-106) mg/dL POC Glucometer 237 H (74 to 106) mg/dL Lactic Acid (0.4-2.0) Calcium (8.4-10.2) mg/dL Total Bilirubin (0.2-1.3) mg/dL AST (14-36) U/L ALT (0-35) U/L Alkaline Phosphatase (38-126) U/L Serum Total Protein (6.3-8.2) g/dL Albumin (3.5-5.0) g/dL Amylase (30-110) U/L Lipase (23-300) U/L Urine Color (YELLOW) Urine Appearance (CLEAR) Urine pH (5-6) Ur Specific Lucien (1.005-1.025) Urine Protein (Negative) Urine Ketones (NEGATIVE) Urine Blood (0-5) Rodriguez/ul Urine Nitrite (NEGATIVE) Urine Bilirubin (NEGATIVE) Urine Urobilinogen (0-1) mg/dL Ur Leukocyte Esterase (NEGATIVE) Urine WBC (Auto) (0-5) /HPF Urine RBC (Auto) (0-2) /HPF U Epithel Cells (Auto) (FEW) /HPF Urine Bacteria (Auto) (NEGATIVE) /HPF Urine Culture Reflexed (NO) Urine Glucose (NEGATIVE) mg/dL Influenza Type A Ag (NEGATIVE) Influenza Type B Ag (NEGATIVE) RSV (PCR) (Negative) SARS-CoV-2 (PCR) (NEGATIVE) Microbiology 10/18/20 14:40 Urine Culture - Preliminary Clean Catch Midstream GRAM NEGATIVE ID AND SENSITIVITY PENDING Accuchecks Date 10/18/20 - Radiology Impressions Radiology Exams & Impressions: Radiology Procedures Category Date Time Status ABDOMEN AND PELVIS W/0 CONTRAS [CT] Stat Exams 10/18/20 14:[address]/ABDOMEN AND PELVIS W/0 CONTRAS Indication: Left flank pain. Multiple contiguous axial images obtained through abdomen and pelvis without contrast using renal stone protocol. Comparison: February 01, 2020. Examination again limited due to patient body habitus and beam artifact from right hip arthroplasty. Lung bases demonstrates minimal dependent atelectasis. No infiltrate or effusion. Heart not enlarged. New 4 mm left UPJ calculus with mild hydronephrosis consistent with partial obstructive uropathy. No perinephric fluid. Again multiple bilateral renal micro-calculi. Noncontrasted stomach and bowel loops remain nonobstructed. Stable colonic diverticulosis, fatty liver, and cholecystectomy. No free fluid/air. Remaining liver, pancreas, spleen, adrenal glands, urinary bladder, uterus, and aorta unremarkable for noncontrast exam. Osseous structures intact again with osteopenia and mild/moderate degenerative changes throughout the thoracolumbar spine. Impression: 1. New 4 mm left UPJ calculus producing partial obstruction. Grossly stable bilateral renal micro-calculi. 2. Again incidental colonic diverticulosis, fatty liver, and chronic bony findings. - Other Procedures and Tests Respiratory Therapy 10/18/20 23:24 BiPap/CPAP ROUTINE Assessment/Plan (1) Urinary tract infection Current Visit: Yes Status: Acute Qualifiers: Urinary tract infection type: site unspecified Hematuria presence: with hematuria Qualified Code(s): N39.0 - Urinary tract infection, site not specified; R31.9 - Hematuria, unspecified Assessment & Plan: Chief Complaint Diagnosis ureterolithiasis Allergies Allergy/AdvReac Type Severity Reaction Status Date / Time No Known Drug Allergies Allergy Verified 10/18/20 14:26 Vital Signs (Last 24 hours) Temp Pulse Resp BP Pulse Ox 10/19/20 07:31 99.2 F 95 H 20 115/53 93 L 10/19/20 04:00 98.4 F 91 H 18 99/54 93 L 10/19/20 00:00 99.2 F 93 H 20 99/54 94 L 10/18/20 21:03 97.9 F 95 H 21 133/61 98 10/18/20 20:30 97.9 F 95 H 21 133/61 98 10/18/20 19:00 84 18 127/74 94 L 10/18/20 18:00 76 16 111/72 94 L 10/18/20 17:23 96 10/18/20 17:00 72 18 114/72 95 10/18/20 16:00 76 18 130/68 96 10/18/20 15:05 84 18 123/67 96 10/18/20 14:14 99.1 F 75 20 123/67 95 Home Medications Medication Instructions Recorded Confirmed Last Taken Type Apixaban [Eliquis 2.5 mg Tablet] 5 mg PO DAILY 10/18/20 10/18/20 Unknown History Celecoxib 100 mg [celeBREX 100 100 mg PO BID 10/18/20 10/18/20 10/18/20 History MG] Cetirizine HCl [Zyrtec] 5 mg PO DAILY 10/18/20 10/19/20 Unknown History Cranberry Fruit Extract [Theracran] 650 mg PO DAILY 0510/18/20 10/18/20 History Levothyroxine Sodium 50 mcg PO DAILY 10/18/20 10/18/20 10/18/20 History [Levothyroxine] Montelukast Sodium 10 mg 10 mg PO DAILY 10/18/20 10/19/20 Unknown History [Singulair 10 MG] Nitrofurantoin Monohyd/M-Cryst 100 mg PO HS 10/18/20 10/18/20 10/17/20 History [Macrobid 100 mg Capsule] Current Medications Generic Name Dose Route Start Last Admin Trade Name Freq PRN Reason Stop Dose Admin Acetaminophen 650 mg 10/19/20 08:17 10/19/20 08:33 Tylenol 325 Mg PO 11/18/20 08:16 650 mg Q4H PRN PRN Administration PAIN AND/OR FEVER Celecoxib 100 mg 10/18/20 22:00 10/19/20 09:54 Celebrex 100 Mg PO 11/17/20 21:59 100 mg BID KEYON Administration Gemfibrozil 600 mg 10/18/20 22:00 10/19/20 09:55 Lopid 600 Mg PO 11/17/20 21:59 600 mg BID KEYON Administration Potassium Chloride/Sodium Chloride 1,000 mls @ 125 mls/hr 10/18/20 19:57 10/19/20 05:07 Sodium Chloride 0.9% W/ 20 Meq Kcl/Liter IV 11/17/20 19:56 125 mls/hr .Q8H KEYON Administration Ceftriaxone Sodium/Dextrose 1 g in 50 mls @ 100 mls/hr 10/19/20 10:00 10/19/20 09:51 Rocephin 1 Gm-D5w 50 Ml Bag IV 10/22/20 09:59 100 mls/hr Q24H10 KEYON Administration Insulin Glargine 10 unit 10/18/20 22:00 10/19/20 09:53 Lantus Insulin SQ 11/17/20 21:59 10 unit BID KEYON Administration Insulin Human Lispro 0 unit 10/18/20 19:57 10/19/20 08:38 Humalog SQ 11/17/20 19:56 3 unit UD PRN Administration HYPERGLYCEMIA Morphine Sulfate 4 mg 10/18/20 19:57 Morphine Sulfate 4 Mg Inj IV 10/23/20 19:56 Q4H PRN PRN PAIN Pantoprazole Sodium 40 mg 10/19/20 10:00 10/19/20 09:56 Protonix 40 Mg Iv IV 11/18/20 09:59 40 mg Q24H10 KEYON Administration Tamsulosin HCl 0.4 mg 10/19/20 10:00 10/19/20 09:54 Flomax 0.4 Mg PO 11/18/20 09:59 0.4 mg DAILY KEYON Administration Discontinued Medications Generic Name Dose Route Start Last Admin Trade Name Freq PRN Reason Stop Dose Admin Sodium Chloride 1,000 mls @ 999 mls/hr 10/18/20 14:38 10/18/20 15:44 Sodium Chloride 0.9% 1000 Ml IV 10/18/20 15:38 Infused .Q1H1M STA Infusion Sodium Chloride Confirm 10/18/20 14:41 Sodium Chloride 0.9% 1000 Ml Administered 10/18/20 14:42 Dose 1,000 mls @ ud .ROUTE .STK-MED ONE Ceftriaxone Sodium/Dextrose 1 g in 50 mls @ 100 mls/hr 10/18/20 17:05 10/18/20 17:46 Rocephin 1 Gm-D5w 50 Ml Bag IV 10/18/20 17:34 Infused STAT STA Infusion Ceftriaxone Sodium/Dextrose Confirm 10/18/20 17:13 Rocephin 1 Gm-D5w 50 Ml Bag Administered 10/18/20 17:14 Dose 1 g in 50 mls @ ud IV .STK-MED ONE Ibuprofen 400 mg 10/19/20 04:54 Motrin 400 Mg PO 11/18/20 04:53 QID PRN PRN PAIN Ibuprofen Confirm 10/19/20 04:59 Motrin 400 Mg Administered 10/19/20 05:00 Dose 400 mg .ROUTE .STK-MED ONE Ketorolac Tromethamine 30 mg 10/18/20 15:39 10/18/20 15:44 Toradol 30 Mg Injection IV 10/18/20 15:40 30 mg STAT ONE Administration Ketorolac Tromethamine Confirm 10/18/20 15:42 Toradol 30 Mg Injection Administered 10/18/20 15:43 Dose 30 mg .ROUTE .STK-MED ONE Morphine Sulfate 4 mg 10/18/20 14:38 10/18/20 14:43 Morphine Sulfate 4 Mg Inj IV 10/18/20 14:39 4 mg STAT ONE Administration Morphine Sulfate Confirm 10/18/20 14:41 Morphine Sulfate 4 Mg Inj Administered 10/18/20 14:42 Dose 4 mg .ROUTE .STK-MED ONE Ondansetron HCl 4 mg 10/18/20 14:38 10/18/20 14:43 Zofran 4 Mg/2 Ml Vial IV 10/18/20 14:39 4 mg STAT ONE Administration Ondansetron HCl Confirm 10/18/20 14:40 Zofran 4 Mg/2 Ml Vial Administered 10/18/20 14:41 Dose 4 mg .ROUTE .STK-MED ONE Tamsulosin HCl 0.8 mg 10/19/20 16:14 10/18/20 16:16 Flomax 0.4 Mg PO 10/19/20 16:15 0.8 mg STAT ONE Administration Tamsulosin HCl Confirm 10/18/20 16:15 Flomax 0.4 Mg Administered 10/18/20 16:16 Dose 0.8 mg .ROUTE .STK-MED ONE Intake & Output (Last 24 hours) 10/16/20 10/17/20 10/18/20 10/19/20 11:59 11:59 11:59 11:59 Intake Total 600 Output Total 700 Balance -100 Weight 158 kg Microbiology Results (Last 24 hours) 10/18/20 14:40 Clean Catch Midstream Urine Culture - Preliminary GRAM NEGATIVE ID AND SENSITIVITY PENDING Laboratory Results (Last 24 hours) 10/19/20 10/19/20 10/19/20 11:11 07:16 04:42 WBC RBC Hgb Hct MCV MCH MCHC RDW Plt Count MPV Gran % Eos # (Auto) Absolute Lymphs (auto) Absolute Monos (auto) Lymphocytes % Monocytes % Eosinophils % Basophils % Absolute Granulocytes Segmented Neutrophils Band Neutrophils Lymphocytes (Manual) Monocytes (Manual) Basophils # Platelet Estimate RBC Morphology Sodium 134 L Potassium 3.8 Chloride 100 Carbon Dioxide 25 Anion Gap 12.8 BUN 20 H Creatinine 1.61 H Estimated GFR 35.2 Glucose 203 H POC Glucometer 237 H 190 H Lactic Acid Calcium 9.2 Total Bilirubin 0.90 AST 54 H ALT 32 Alkaline Phosphatase 108 Serum Total Protein 6.7 Albumin 3.9 Amylase Lipase Urine Color Urine Appearance Urine pH Ur Specific Lucien Urine Protein Urine Ketones Urine Blood Urine Nitrite Urine Bilirubin Urine Urobilinogen Ur Leukocyte Esterase Urine WBC (Auto) Urine RBC (Auto) U Epithel Cells (Auto) Urine Bacteria (Auto) Urine Culture Reflexed Urine Glucose Influenza Type A Ag Influenza Type B Ag RSV (PCR) SARS-CoV-2 (PCR) 10/19/20 10/18/20 10/18/20 04:42 20:50 17:44 WBC 15.7 H RBC 4.18 Hgb 12.4 Hct 39.5 MCV 94.5 MCH 29.7 MCHC 31.4 L RDW 13.9 Plt Count 270 MPV 9.7 Gran % Eos # (Auto) Absolute Lymphs (auto) Absolute Monos (auto) Lymphocytes % Monocytes % Eosinophils % Basophils % Absolute Granulocytes Segmented Neutrophils 82 H Band Neutrophils 5 H Lymphocytes (Manual) 10 L Monocytes (Manual) 3 Basophils # Platelet Estimate NORMAL RBC Morphology NORMAL Sodium Potassium Chloride Carbon Dioxide Anion Gap BUN Creatinine Estimated GFR Glucose POC Glucometer 218 H Lactic Acid Calcium Total Bilirubin AST ALT Alkaline Phosphatase Serum Total Protein Albumin Amylase Lipase Urine Color Urine Appearance Urine pH Ur Specific Lucien Urine Protein Urine Ketones Urine Blood Urine Nitrite Urine Bilirubin Urine Urobilinogen Ur Leukocyte Esterase Urine WBC (Auto) Urine RBC (Auto) U Epithel Cells (Auto) Urine Bacteria (Auto) Urine Culture Reflexed Urine Glucose Influenza Type A Ag NEGATIVE Influenza Type B Ag NEGATIVE RSV (PCR) NEGATIVE SARS-CoV-2 (PCR) NEGATIVE 10/18/20 10/18/20 10/18/20 14:40 14:38 14:27 WBC RBC Hgb Hct MCV MCH MCHC RDW Plt Count MPV Gran % Eos # (Auto) Absolute Lymphs (auto) Absolute Monos (auto) Lymphocytes % Monocytes % Eosinophils % Basophils % Absolute Granulocytes Segmented Neutrophils Band Neutrophils Lymphocytes (Manual) Monocytes (Manual) Basophils # Platelet Estimate RBC Morphology Sodium 134 L Potassium 3.4 L Chloride 99 Carbon Dioxide 26 Anion Gap 12.5 BUN 16 Creatinine 1.18 H Estimated GFR 50.4 Glucose 234 H POC Glucometer Lactic Acid 1.5 Calcium 10.0 Total Bilirubin 0.80 AST 85 H ALT 42 H Alkaline Phosphatase 152 H Serum Total Protein 7.5 Albumin 4.5 Amylase 45 Lipase 101 Urine Color YELLOW Urine Appearance SLIGHTLY CLOUDY Urine pH 6.0 Ur Specific Lucien 1.011 Urine Protein 30 Urine Ketones TRACE Urine Blood LARGE Urine Nitrite NEGATIVE Urine Bilirubin NEGATIVE Urine Urobilinogen NEGATIVE Ur Leukocyte Esterase LARGE Urine WBC (Auto) 51-100 Urine RBC (Auto) >101 U Epithel Cells (Auto) RARE Urine Bacteria (Auto) FEW Urine Culture Reflexed YES Urine Glucose 150 Influenza Type A Ag Influenza Type B Ag RSV (PCR) SARS-CoV-2 (PCR) 10/18/20 14:27 WBC 13.0 H RBC 4.74 Hgb 14.0 Hct 43.8 MCV 92.4 MCH 29.5 MCHC 32.0 RDW 13.7 Plt Count 317 MPV 10.0 Gran % 83.0 H Eos # (Auto) 0.02 Absolute Lymphs (auto) 1.20 Absolute Monos (auto) 0.93 Lymphocytes % 9.2 L Monocytes % 7.1 Eosinophils % 0.2 Basophils % 0.5 Absolute Granulocytes 10.83 H Segmented Neutrophils Band Neutrophils Lymphocytes (Manual) Monocytes (Manual) Basophils # 0.06 Platelet Estimate RBC Morphology Sodium Potassium Chloride Carbon Dioxide Anion Gap BUN Creatinine Estimated GFR Glucose POC Glucometer Lactic Acid Calcium Total Bilirubin AST ALT Alkaline Phosphatase Serum Total Protein Albumin Amylase Lipase Urine Color Urine Appearance Urine pH Ur Specific Lucien Urine Protein Urine Ketones Urine Blood Urine Nitrite Urine Bilirubin Urine Urobilinogen Ur Leukocyte Esterase Urine WBC (Auto) Urine RBC (Auto) U Epithel Cells (Auto) Urine Bacteria (Auto) Urine Culture Reflexed Urine Glucose Influenza Type A Ag Influenza Type B Ag RSV (PCR) SARS-CoV-2 (PCR) Orders (Last 24 hours) Category Date Time Status Bedrest with BRP/BSC ROUTINE Activity 10/18/20 19:57 Active Up With Assistance ROUTINE Activity 10/18/20 19:57 Active Code Status Order ROUTINE Care 10/18/20 19:57 Active Fall Protocol Q1H Care 10/18/20 19:57 Active IV Care Q6H Care 10/18/20 19:57 Active IV Insertion STAT Care 10/18/20 14:38 Completed NPO (ED) STAT Care 10/18/20 14:38 Completed POCT Glucose Check ACHS Care 10/18/20 19:[address] Observation ROUTINE Care 10/18/20 19:57 Active Duong Arana, Apply ROUTINE Care 10/18/20 19:57 Active Weight,Daily 0600 Care 10/18/20 19:57 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 Cons 10/18/20 21:01 Active Nutritional Admission Screen ONCE Diet 10/18/20 21:01 Active ABDOMEN AND PELVIS W/0 CONTRAS [CT] Stat Exams 10/18/20 14:38 Completed AMYLASE Stat Lab 10/18/20 14:27 Completed CBC W DIFF AM.LAB Lab 10/19/20 04:42 Completed CBC W DIFF Stat Lab 10/18/20 14:27 Completed CMP AM.LAB Lab 10/19/20 04:42 Completed CMP Stat Lab 10/18/20 14:27 Completed CULTURE,URINE Stat Lab 10/18/20 14:40 Results LIPASE Stat Lab 10/18/20 14:27 Completed Lactic Acid Stat Lab 10/18/20 14:38 Completed Manual Differential NC Routine Lab 10/19/20 04:42 Completed POCT GLUCOSE Stat Lab 10/18/20 20:50 Completed POCT GLUCOSE Stat Lab 10/19/20 07:16 Completed POCT GLUCOSE Stat Lab 10/19/20 11:11 Completed UA W/RFX UR CULTURE Stat Lab 10/18/20 14:40 Completed Acetaminophen 325 mg [Tylenol 325 mg] Med 10/19/20 08:17 Active 650 mg PO Q4H PRN PRN Ceftriaxone 1 GM/50 ML PREMIX* [ROCEPHIN 1 Gm-D5w 50 ml Med 10/19/20 10:00 Active Bag] 1 g in 50 ml IV Q24H10 Ceftriaxone 1 GM/50 ML PREMIX* [ROCEPHIN 1 Gm-D5w 50 ml Med 10/18/20 17:05 Discontinued Bag] 1 g in 50 ml IV STAT Ceftriaxone 1 GM/50 ML PREMIX* [ROCEPHIN 1 Gm-D5w 50 ml Med 10/18/20 17:13 Discontinued Bag] 1 g in 50 ml IV UD Celecoxib 100 mg [celeBREX 100 MG] Med 10/18/20 22:00 Active 100 mg PO BID Gemfibrozil 600 mg [Lopid 600 mg] Med 10/18/20 22:00 Active 600 mg PO BID Ibuprofen 400 mg [Motrin 400 mg] Med 10/19/20 04:59 Discontinued 400 mg .ROUTE .STK-MED ONE Ibuprofen 400 mg [Motrin 400 mg] Med 10/19/20 04:54 Discontinued 400 mg PO QID PRN PRN Insulin Glargine [Lantus Insulin] Med 10/18/20 22:00 Active 10 unit SQ BID Insulin Lispro [Humalog] Med 10/18/20 19:57 Active See Dose Instructions SQ UD PRN KETOROLAC trometh 30 mg Inj [TORAdol 30 mg Injection Med 10/18/20 15:42 Discontinued ] 30 mg .ROUTE .STK-MED ONE KETOROLAC trometh 30 mg Inj [TORAdol 30 mg Injection Med 10/18/20 15:39 Discontinued ] 30 mg IV STAT ONE Morphine Sulfate 4 mg Inj Med 10/18/20 14:41 Discontinued 4 mg .ROUTE .STK-MED ONE Morphine Sulfate 4 mg Inj Med 10/18/20 19:57 Active 4 mg IV Q4H PRN PRN Morphine Sulfate 4 mg Inj Med 10/18/20 14:38 Discontinued 4 mg IV STAT ONE NaCl 0.9% 1000 ml + KCl 20 Meq [Sodium Chloride 0.9% W/ Med 10/18/20 19:57 Active 20 mEq KCl/LITER] 1,000 ml IV 125 mls/hr NaCl 0.9% 1000 ml [Sodium Chloride 0.9% 1000 ML] 1,000 Med 10/18/20 14:41 Discontinued ml .ROUTE UD NaCl 0.9% 1000 ml [Sodium Chloride 0.9% 1000 ML] 1,000 Med 10/18/20 14:38 Discontinued ml IV 999 mls/hr Ondansetron HCl 4 mg/2 ml [Zofran 4 MG/2 ML VIAL] Med 10/18/20 14:40 Discontinued 4 mg .ROUTE .STK-MED ONE Ondansetron HCl 4 mg/2 ml [Zofran 4 MG/2 ML VIAL] Med 10/18/20 14:38 Discontinued 4 mg IV STAT ONE Pantoprazole 40 mg [Protonix 40 mg IV] Med 10/19/20 10:00 Active 40 mg IV Q24H10 Tamsulosin HCl 0.4 mg [Flomax 0.4 MG] Med 10/19/20 10:00 Active 0.4 mg PO DAILY Tamsulosin HCl 0.4 mg [Flomax 0.4 MG] Med 10/18/20 16:15 Discontinued 0.8 mg .ROUTE .STK-MED ONE Tamsulosin HCl 0.4 mg [Flomax 0.4 MG] Med 10/19/20 16:14 Discontinued 0.8 mg PO STAT ONE BiPap/CPAP ROUTINE RT 10/18/20 23:24 Active Code(s): N39.0 - URINARY TRACT INFECTION, SITE NOT SPECIFIED (2) Ureterolithiasis Current Visit: Yes Status: Acute
[2020-10-19] MEDS ORDERED: CLARITIN 10 MG PO SCH (13:00)
[2020-10-19] MEDS ORDERED: NORVASC 5 MG PO SCH (13:00)
[2020-10-19] MEDS ORDERED: ZOCOR 20MG PO SCH (13:00)
[2020-10-19] MEDS ORDERED: MEDICATION INTERVENTION PO SCH (13:15)
[2020-10-19] MEDS: ELIQUIS 2.5 MG TABLET PO SCH (13:47)
[2020-10-19] MEDS: SYNTHROID 50 MCG PO SCH (13:48)
[2020-10-19] MEDS: hydroDIURIL 25 MG PO SCH (13:49)
[2020-10-19] MEDS: Singulair 10 MG PO SCH (13:49)
[2020-10-19] MEDS: Zestril 20 MG PO SCH (13:50)
[2020-10-19] MEDS ORDERED: Flomax 0.4 MG PO ONE (16:14)
[2020-10-19] MEDS ORDERED: INSULIN ASPART 20 UNIT SQ SCH (16:30)
[2020-10-19] MEDS: HUMALOG SQ SCH (16:55)
[2020-10-19] MEDS ORDERED: Macrobid 100MG Capsule PO SCH (22:00)
[2020-10-19] MEDS ORDERED: NORVASC 5 MG ONE (22:14)
[2020-10-19] MEDS ORDERED: CLARITIN 10 MG ONE (22:14)
[2020-10-19] MEDS ORDERED: ZOCOR 20MG ONE (22:15)
[2020-10-20] MEDS: Sodium Chloride 0.9% W/ 20 mEq KCl/LITER 1,000 ML IV SCH (05:32)
[2020-10-20 07:09] VITALS: O2SAT 97
[2020-10-20] MEDS: HUMALOG SQ PRN ×2 (07:36→11:48)
[2020-10-20] MEDS: HUMALOG SQ SCH ×2 (07:36→11:47)
[2020-10-20] MEDS: ROCEPHIN 1 Gm-D5w 50 ml Bag** 1 G/50 ML IVPB IV SCH (08:51)
[2020-10-20] MEDS: Flomax 0.4 MG PO SCH (08:52)
[2020-10-20] MEDS: Lantus Insulin SQ SCH (08:52)
[2020-10-20] MEDS: hydroDIURIL 25 MG PO SCH (08:52)
[2020-10-20] MEDS: Zestril 20 MG PO SCH (08:52)
[2020-10-20] MEDS: SYNTHROID 50 MCG PO SCH (08:52)
[2020-10-20] MEDS: ELIQUIS 2.5 MG TABLET PO SCH (08:52)
[2020-10-20] MEDS: PROTONIX 40 MG IV IV SCH (08:52)
[2020-10-20] MEDS: Singulair 10 MG PO SCH (08:52)
[2020-10-20] MEDS: LOPID 600 MG PO SCH (08:53)
[2020-10-20] MEDS: celeBREX 100 MG PO SCH (08:53)
[2020-10-20] MEDS ORDERED: CRANBERRY FRUIT EXTRACT 650 MG PO SCH (10:00)
[2020-10-20] MEDS ORDERED: HYDROCHLOROTHIAZIDE PO SCH (10:00)
[2020-10-20] MEDS ORDERED: NON-FORMULARY ITEM (Atorvastatin Calcium [Atorvastatin Calcium] 20 MG) PO SCH (10:00)
[2020-10-20] MEDS ORDERED: LISINOPRIL PO SCH (10:00)
[2020-10-20] MEDS ORDERED: NON-FORMULARY ITEM (Cetirizine Hcl [Zyrtec] 5 MG) PO SCH (10:00)
[2020-10-20] MEDS ORDERED: NON-FORMULARY ITEM (Levothyroxine Sodium [Levothyroxine] 50 MCG) PO SCH (10:00)
[2020-10-20] MEDS ORDERED: [UNRECOGNIZED DRUG - OTHER] PO SCH (10:00)
[2020-10-20 10:21] LABS: Hematocrit 37.3 % (35-47); Hemoglobin 11.7 gm/dl (12.0-16.0); Mean Cell Volume 95.4 fl (78-100); Mean Corpuscular Hemoglobin 29.9 pg (26-32); Mean Corpuscular Hgb Concent. 31.4 g/dl (32-36); Mean Platelet Volume 9.7 fl (7.5-11.0); Platelet Count 186 K/mm3 (150-450); Red Blood Count 3.91 M/mm3 (4.1-5.4); Red Cell Distribution Width 14.1 % (11.5-14.0); White Blood Count 8.9 K/mm3 (4.0-10.5)
[2020-10-20 12:05] VITALS: BP 125/69; PULSE 69
[2020-10-20] MEDS ORDERED: NORVASC 5 MG PO SCH (22:00)
[2020-10-20] MEDS ORDERED: ZOCOR 20MG PO SCH (22:00)
[2020-10-20] MEDS ORDERED: CLARITIN 10 MG PO SCH (22:00)
== END 2020-10-20 14:08 | disposition home or self-care (01) ==
LOC: ED 14:02 → MED SURG 19:53
PROVIDERS: ADMIT General Practice; ATTEND General Practice
DX: N39.0 Urinary tract infection, site not specified (principal); N20.1 Calculus of ureter; R10.9 Unspecified abdominal pain; R31.9 Hematuria, unspecified; Z79.899 Other long term (current) drug therapy; E10.9 Type 1 diabetes mellitus without complications; R11.10 Vomiting, unspecified; R19.7 Diarrhea, unspecified; Z79.01 Long term (current) use of anticoagulants; Z20.828 Contact with and (suspected) exposure to other viral communicable diseases
CPT/HCPCS: 0241U; 36000; 36415; 74176; 80053; 81001; 82150; 82360; 82947; 83605; 83690; 85025; 85027; 87077; 87086; 87186; 94660; 96374; 96375; 99285; G0378; J0696; J1817; J1885; J2270; J2405; A9270-GY